=== PATIENT | female | born 1955 | race Caucasian/White ===

== ENCOUNTER 2021-04-10 07:42 | Day surgery (SDC) | payer OTHER, BC, SELFPAY ==
[~2021-04-10] VITALS: Ht 149.9 cm; Wt 52.6 kg
[~2021-04-10 07:42] MED LIST: AMLO10TA88 PO; CALC0.253 PO; CARB400T PO; CARV6.2554 PO; FEXO180T16 PO; GEMF600T89 PO; HYDR-4039 PO; LISI10TA29 PO; NOR10 PO
[2021-04-10] MEDS ORDERED: MIDAZOLAM HCL 5 MG/5 ML VIAL ONE (08:38)
[2021-04-10] MEDS ORDERED: MEPERIDINE 100 MG INJ. 100 MG/ML VIAL ONE (08:38)
[2021-04-10] MEDS ORDERED: SIMETHICONE 40 MG/0.6 ML ML ONE (08:38)
[2021-04-10] MEDS ORDERED: GENTAMICIN SULFATE 200 MG in NS 100 ML IV ONE (09:15)
[2021-04-10] MEDS ORDERED: AMPICILLIN SODIUM 2 GM in NS 100 ML IV ONE (09:15)
[2021-04-10 14:16] VITALS: BP_SYST 140
== END 2021-04-10 14:16 | disposition home or self-care (01) ==
LOC: SDS 07:42 → SMU 07:44 → SDS 14:16
PROVIDERS: ATTEND Internal Medicine Gastroenterology
DX: Z12.11 Encounter for screening for malignant neoplasm of colon (principal); D12.4 Benign neoplasm of descending colon; D12.5 Benign neoplasm of sigmoid colon; K44.9 Diaphragmatic hernia without obstruction or gangrene; I12.0 Hypertensive chronic kidney disease with stage 5 chronic kidney disease or end stage renal disease; N18.6 End stage renal disease; Z79.899 Other long term (current) drug therapy
CPT/HCPCS: 36415; 45385; 87426; 88305; 99152; 99153; G0378; J0290; J1580; J2175; J2250; U0003